=== PATIENT | male | born 1995 | race Caucasian/White ===

== ENCOUNTER 2022-09-23 18:32 | Emergency (ER) | payer OTHER ==
[~2022-09-23] VITALS: Ht 160 cm; Wt 61.2 kg
[2022-09-23 19:01] VITALS: BP 130/68
[2022-09-23] MEDS ORDERED: CYCL10 PO (20:47)
== END 2022-09-23 21:05 | disposition home or self-care (01) ==
LOC: ER 18:32
DX: S39.012A Strain of muscle, fascia and tendon of lower back, initial encounter (principal); S29.012A Strain of muscle and tendon of back wall of thorax, initial encounter; V53.5XXA Driver of pick-up truck or van injured in collision with car, pick-up truck or van in traffic accident, initial encounter
CPT/HCPCS: 96374; 99283-25; J1885

== ENCOUNTER 2022-09-25 12:58 | Emergency (ER) | payer OTHER ==
[~2022-09-25] VITALS: Ht 165.1 cm; Wt 59.0 kg
[~2022-09-25 12:58] MED LIST: CYCL10 PO
[2022-09-25 13:02] VITALS: BP 126/54
== END 2022-09-25 14:55 | disposition home or self-care (01) ==
LOC: ER 12:58
DX: M54.50 Low back pain, unspecified (principal); F17.200 Nicotine dependence, unspecified, uncomplicated; V89.2XXA Person injured in unspecified motor-vehicle accident, traffic, initial encounter
CPT/HCPCS: 96372; 99283; A9270; J1885; J7030